=== PATIENT | male | born 1955 | race Caucasian/White ===

== ENCOUNTER 2017-05-06 18:52 | Inpatient (IN) | payer MEDICARE ==
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
[~2017-05-06 18:52] MED LIST: ACETAMINOPHEN PO; ALPRAZOLAM PO; AMBIEN PO; ANSAID100 MG PO; ASPIRIN PO; ASPIRIN81 M2 PO; ATARAX PO; ATIVAN PO; AZITHROMYCIN250 MG PO; B/P PILL; B/P PILL PO; BACTRIM DS PO; BENADRYL25 M1 PO; BENZONATATE PO; BLOOD PRESSURE MED; BP MED; BRILINTA90 MG PO; CIPRO PO; DIABETES MED; DIABETIC MED PO; DIABETIC MEDICATION; DIAZEPAM PO; ELIMITE60 G1 TOP; EXCEDRIN EXTRA1 TAB PO; FLEXERIL10 MG PO; FLOMAX0.4 M1 PO; GLUCOTROL PO; GLUCOTROL XL PO; HYDROCODON-ACE1 EAC7 PO; IBUPROFEN PO; IBUPROFEN800 MG PO; INSULIN SUBQ; LANTUS100 U/ML SUBQ; LEVAQUIN PO; LEVEMIR SUBQ; LIPITOR PO; LIPITOR20 MG PO; LISINOPRIL PO; LORTAB 7.51 TAB PO; MACROBID100 M1 PO; MED FOR DIABETES; METFORMIN HCL1000 M1 PO; METFORMIN HCL500 M1 PO; METFORMIN PO; MEVACOR PO; MOTRIN PO; PATIENT'S PHARMACY; PERCOCET 51 UDTAB 5/ PO; PERCOCET5/325 PO; PHARMACY; PHENERGAN25 M1 PO; PHENERGAN25 MG PO; PREDNISONE PO; PROVENTIL INH0.5 ML INH; PYRIDIUM PO; RANEXA500 MG PO; ROBAXIN 750750 M1 PO; ROBAXIN500 MG PO; SKELAXIN PO; ULTRAM PO; VICODIN 5/1 TAB 5/50 PO; VISTARIL PO; VISTARIL50 MG PO; VOLTAREN50 MG PO; VOLTAREN75 MG PO; ZANTAC150 MG PO; ZANTAC300 MG PO; ZITHROMAX PO; ZOFRAN ODT PO; [UNRECOGNIZED DRUG - OTHER] TOP; [UNRECOGNIZED DRUG - REMARK]
[2017-05-06 20:06] LABS: BASOPHIL# 0.1 X10e3 (0-0.3); BASOPHIL% 0.9 % (0-2.5); DIFF IND YES; EOSINOPHIL# 0.1 X10e3 (0-0.7); EOSINOPHIL% 0.4 % (0.0-7.0); HEMATOCRIT 48.5 % (38.0-50.0); HEMOGLOBIN 15.5 gm/dL (13.0-16.0); LYMPHOCYTE# 2.6 X10e3 (1.0-3.5); LYMPHOCYTE% 16.7 % (17.0-45.0); MEAN CELL VOLUME 81.4 FL (83-96); MEAN CORPUSCULAR HGB CONC 31.9 g/dL (30-36); MEAN PLATELET VOLUME 8.5 FL (6.5-11.5); MONOCYTE# 0.9 X10e3 (0-1.0); MONOCYTE% 5.5 % (3.0-12.0); NEUTROPHIL% 76.5 % (40-75); PLATELET COUNT 383 X10e3 (140-420); RED BLOOD COUNT 5.96 X10e (3.90-5.60); RED CELL DISTRIBUTION WIDTH 15.1 % (11.0-15.5); WHITE BLOOD COUNT 15.7 X10e3 (4.0-10.5)
[2017-05-06 20:08] LABS: ALBUMIN SERUM 4.6 g/dL (3.5-5.0); BILIRUBIN, DIRECT 0.1 mg/dL (0.0-0.2); BILIRUBIN,INDIRECT 0.4 mg/dL (0.0-0.9); BILIRUBIN,TOTAL 0.5 mg/dL (0.2-2.0); BUN/CREATININE RATIO 14.5; CALCIUM SERUM 9.8 mg/dL (8.4-10.2); POTASSIUM 4.1 mmol/L (3.5-5.1); PROTEIN TOTAL SERUM 8.6 g/dL (6.0-8.3)
[2017-05-06 20:26] LABS: ANISOCYTOSIS MOD; PLATELET ESTIMATE NORMAL (NORMAL)
[2017-05-06 20:27] LABS: POIKILOCYTOSIS SL
[2017-05-06 23:11] LABS: URINE APPEARANCE CLEAR; URINE BILIRUBIN NEG (NEG); URINE BLOOD TRACE (NEG); URINE COLOR YELLOW; URINE GLUCOSE 250 MG/DL (NEG); URINE KETONE TRACE (NEG); URINE LEUKOCYTE ESTERASE NEG (NEG); URINE NITRATE NEG (NEG); URINE PROTEIN 3+ (NEG); URINE SOURCE CLEAN CATCH; URINE SPECIFIC GRAVITY 1.026 (1.003-1.035); URINE UROBILINOGEN 0.2 MG/DL (NEG)
[2017-05-06 23:14] LABS: URBCS1 AUWI 0-2 /[HPF] (0-2); URINE BACTERIA AUWI NEG (NEGATIVE); URINE SQUAMOUS EPITHELIAL CELL NONE SEEN /[HPF]; UWBCS1 AUWI 0-2 (0-5)
[2017-05-06 23:16] LABS: CULTURE INDICATED? NO
[2017-05-07] MEDS ORDERED: LIPITOR20 MG PO (12:38)
[2017-05-07] MEDS ORDERED: LANTUS100 U/ML SUBQ (12:39)
[2017-05-07] MEDS ORDERED: BISOPROLOL-HCT1 EACH PO (12:39)
[2017-05-07] MEDS ORDERED: PROCENTRA5 MG/5 ML PO (12:40)
[2017-05-07] MEDS ORDERED: VITAMIN D350000 UNIT PO (12:41)
[2017-05-07] MEDS ORDERED: METFORMIN HCL1000 M1 PO (12:41)
== END 2017-05-07 00:47 | disposition left against medical advice (07) | DRG 390 ==
LOC: CED 18:52 → CEDOF 23:15 → CED 23:28 → CEDOF 05-07 00:47
DX: K56.60 Unspecified intestinal obstruction (principal); E11.9 Type 2 diabetes mellitus without complications; F17.200 Nicotine dependence, unspecified, uncomplicated
CPT/HCPCS: 74176; 80048; 80076; 81003; 82947; 83690; 85025; 96361; 96374; 96375; 96376; 99284; C9113; J1170; J1650; J2250; J2270; J2405

== ENCOUNTER 2017-05-07 10:38 | Emergency (ER) | payer MEDICARE ==
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
[2017-05-07 11:36] LABS: BASOPHIL% 0.2 % (0-2.5); EOSINOPHIL% 0.1 % (0.0-7.0); HEMATOCRIT 48.1 % (38.0-50.0); HEMOGLOBIN 15.4 gm/dL (13.0-16.0); LYMPHOCYTE# 0.7 X10e3 (1.0-3.5); LYMPHOCYTE% 5.4 % (17.0-45.0); MEAN CELL VOLUME 81.7 FL (83-96); MEAN CORPUSCULAR HEMOGLOBIN 26.2 PG (28-34); MEAN CORPUSCULAR HGB CONC 32.1 g/dL (30-36); MEAN PLATELET VOLUME 8.2 FL (6.5-11.5); MONOCYTE# 0.7 X10e3 (0-1.0); MONOCYTE% 5.2 % (3.0-12.0); NEUTROPHIL% 89.1 % (40-75); PLATELET COUNT 336 X10e3 (140-420); RED BLOOD COUNT 5.88 X10e (3.90-5.60); RED CELL DISTRIBUTION WIDTH 15.2 % (11.0-15.5); WHITE BLOOD COUNT 13.4 X10e3 (4.0-10.5)
[2017-05-07 11:48] LABS: DIFF IND NO
[2017-05-07 12:06] LABS: ALBUMIN SERUM 4.1 g/dL (3.5-5.0); BILIRUBIN, DIRECT 0.1 mg/dL (0.0-0.2); BILIRUBIN,INDIRECT 0.4 mg/dL (0.0-0.9); BILIRUBIN,TOTAL 0.5 mg/dL (0.2-2.0); BUN/CREATININE RATIO 16.31; CALCIUM SERUM 9.3 mg/dL (8.4-10.2); CREATININE SERUM 1.9 mg/dL (0.6-1.4); GLOM FILT RATE Estimated 37.2 mL/min (>60); POTASSIUM 4.7 mmol/L (3.5-5.1)
[2017-05-07] MEDS ORDERED: LIPITOR20 MG PO (12:38)
[2017-05-07 12:39] LABS: URINE SOURCE CLEAN CATCH
[2017-05-07] MEDS ORDERED: BISOPROLOL-HCT1 EACH PO (12:39)
[2017-05-07] MEDS ORDERED: LANTUS100 U/ML SUBQ (12:39)
[2017-05-07] MEDS ORDERED: PROCENTRA5 MG/5 ML PO (12:40)
[2017-05-07] MEDS ORDERED: VITAMIN D350000 UNIT PO (12:41)
[2017-05-07] MEDS ORDERED: METFORMIN HCL1000 M1 PO (12:41)
[2017-05-07 12:48] LABS: URINE APPEARANCE CLEAR; URINE BILIRUBIN NEG (NEG); URINE BLOOD 1+ (NEG); URINE COLOR YELLOW; URINE GLUCOSE 250 MG/DL (NEG); URINE KETONE NEG (NEG); URINE LEUKOCYTE ESTERASE NEG (NEG); URINE NITRATE NEG (NEG); URINE PROTEIN 3+ (NEG); URINE SPECIFIC GRAVITY 1.022 (1.003-1.035); URINE UROBILINOGEN 0.2 MG/DL (NEG)
[2017-05-07 12:53] LABS: U HYALINE CASTS AUWI 0-2 /[LPF]; URBCS1 AUWI 0-2 /[HPF] (0-2); URINE BACTERIA AUWI NEG (NEGATIVE); URINE SQUAMOUS EPITHELIAL CELL NONE SEEN /[HPF]; UWBCS1 AUWI 0-2 (0-5)
[2017-05-07 12:58] LABS: CULTURE INDICATED? NO
== END 2017-05-07 15:20 | disposition home or self-care (01) ==
LOC: CED 10:38 → CEDOF 12:20 → CED 12:45
PROVIDERS: Student in an Organized Health Care Education/Training Program
DX: K56.60 Unspecified intestinal obstruction (principal); E11.9 Type 2 diabetes mellitus without complications; I10 Essential (primary) hypertension; F17.200 Nicotine dependence, unspecified, uncomplicated; Z98.890 Other specified postprocedural states; Z88.0 Allergy status to penicillin
CPT/HCPCS: 36415; 74022; 80048; 80076; 81003; 82150; 82947; 83690; 85025; 96361; 96374; 96375; 99285; C9113; J1170; J1650; J2405

== ENCOUNTER 2017-05-08 16:24 | Emergency (ER) | payer MEDICARE ==
[~2017-05-08 16:24] MED LIST changes: +BISOPROLOL-HCT1 EACH PO; +PROCENTRA5 MG/5 ML PO; +VITAMIN D350000 UNIT PO
== END 2017-05-08 18:15 | disposition left against medical advice (07) ==
LOC: CED 16:24
DX: Z53.21 Procedure and treatment not carried out due to patient leaving prior to being seen by health care provider (principal)

== ENCOUNTER 2017-06-21 14:16 | Emergency (ER) | payer MEDICARE ==
[2017-06-21] MEDS ORDERED: HYDROCODON-ACE1 EAC7 PO (14:20)
== END 2017-06-21 15:41 | disposition home or self-care (01) ==
LOC: SED 14:16
DX: K08.89 Other specified disorders of teeth and supporting structures (principal); I10 Essential (primary) hypertension; E11.9 Type 2 diabetes mellitus without complications; F17.210 Nicotine dependence, cigarettes, uncomplicated
CPT/HCPCS: 96372; 99282; J1885